=== PATIENT | male | born 1980 | race Hispanic/Latino ===

== ENCOUNTER 2018-04-20 06:05 | Emergency (ER) | payer SELFPAY ==
[2018-04-20 06:45] LABS: Absolute Lymphocytes (CBC) 1.6 K/uL (0.7-4.9); Absolute Monocytes 0.6 K/uL (0.1-1.3); Absolute Neutrophil 5.6 K/uL (1.8-8.0); Basophils % 0.8 % (0-1.3); Eosinophils % 2.9 % (0-4.4); Hematocrit 44.2 % (39.6-49.0); Lymphocytes % 19.5 % (15.3-44.8); MPV 8.3 fL (7.6-11.3); Monocytes % 7.5 % (3.3-12.3); RBC Red Blood Cell Count 4.93 M/uL (4.33-5.43)
[2018-04-20 07:01] LABS: BUN Blood Urea Nitrogen 13 mg/dL (7-18); Bicarbonate 27 mmol/L (21-32); Glucose Level 116 mg/dL (74-106); NT PRO-BNP 17 pg/mL (<125); Potassium 3.7 mmol/L (3.5-5.1); Sodium Level 142 mmol/L (136-145); Troponin (Emerg Dept Use Only) < 0.02 ng/mL (0.0-0.045)
[2018-04-20] MEDS ORDERED: MAGNE/ALUM HYDROXD 30 ML UCUP ONE (07:17)
[2018-04-20] MEDS ORDERED: LIDOCAINE VISCOUS 2% SOLN 15 ML UDC ONE (07:17)
--- NOTE | 2018-04-20 07:51 | EDPHYS ---
Physician Documentation [facility] Name: Jj Quintero Age: 37 yrs Sex: Male : 1980 Arrival Date: 04/20/2018 Time: 06:09 Bed 20 Private MD: ED Physician Cameron Reed HPI: 04/20 07:07 This 37 yrs old Male presents to ER via EMS with complaints of Shortness Of kb Breath. 07:07 The patient has shortness of breath with light activity, that occurred at work. Onset: kb The symptoms/episode began/occurred at 04:00, and improved. Duration: The symptoms are continuous. The patient's shortness of breath is aggravated by nothing, is alleviated by nothing. Associated signs and symptoms: The patient has no apparent associated signs or symptoms. Severity of symptoms: At their worst the symptoms were moderate in the emergency department the symptoms are unchanged. The patient has not experienced similar symptoms in the past. The patient has not recently seen a physician. Pt states his mouth and throat became really dry and felt "kind of numb" then he felt like he couldn't catch his breath. States it feels the same as when he has had GERD in the past. States he does not take medication normally for GERD. The last time he had these symptoms was 3-4 weeks ago after eating really spicy crawfish. He woke up at 0200 feeling like he couldn't breathe and like liquid was going up and down his throat. . Historical: - Allergies: 06:13 No Known Allergies; ed1 - Home Meds: 06:13 None [Active]; ed1 - PMHx: 06:13 Migraines; ed1 - PSHx: 06:13 Knee surgery; ed1 - Immunization history:: Adult Immunizations unknown. - Social history:: Smoking status: Patient uses tobacco products, reports quitting smoking 3 days ago. - Ebola Screening: : Patient negative for fever greater than or equal to 101.5 degrees Fahrenheit, and additional compatible Ebola Virus Disease symptoms Patient denies exposure to infectious person Patient denies travel to an Ebola-affected area in the 21 days before illness onset No symptoms or risks identified at this time. ROS: 07:07 Constitutional: Negative for fever, chills, and weight loss, Cardiovascular: Negative kb for chest pain, palpitations, and edema, Abdomen/GI: Negative for abdominal pain, nausea, vomiting, diarrhea, and constipation, Back: Negative for injury and pain, : Negative for injury, bleeding, discharge, and swelling, MS/Extremity: Negative for injury and deformity, Skin: Negative for injury, rash, and discoloration, Neuro: Negative for headache, weakness, numbness, tingling, and seizure. 07:07 Respiratory: Positive for shortness of breath, Negative for cough, dyspnea on exertion, hemoptysis, orthopnea, pleurisy, sputum production, wheezing. Exam: 07:07 Constitutional: This is a well developed, well nourished patient who is awake, alert, kb and in no acute distress. Head/Face: Normocephalic, atraumatic. Neck: Trachea midline, no thyromegaly or masses palpated, and no cervical lymphadenopathy. Supple, full range of motion without nuchal rigidity, or vertebral point tenderness. No Meningismus. Chest/axilla: Normal chest wall appearance and motion. Nontender with no deformity. No lesions are appreciated. Cardiovascular: Regular rate and rhythm with a normal S1 and S2. No gallops, murmurs, or rubs. Normal PMI, no JVD. No pulse deficits. Respiratory: Lungs have equal breath sounds bilaterally, clear to auscultation and percussion. No rales, rhonchi or wheezes noted. No increased work of breathing, no retractions or nasal flaring. Abdomen/GI: Soft, non-tender, with normal bowel sounds. No distension or tympany. No guarding or rebound. No evidence of tenderness throughout. Back: No spinal tenderness. No costovertebral tenderness. Full range of motion. Skin: Warm, dry with normal turgor. Normal color with no rashes, no lesions, and no evidence of cellulitis. MS/ Extremity: Pulses equal, no cyanosis. Neurovascular intact. Full, normal range of motion. Neuro: Awake and alert, GCS 15, oriented to person, place, time, and situation. Cranial nerves II-XII grossly intact. Motor strength 5/5 in all extremities. Sensory grossly intact. Cerebellar exam normal. Normal gait. Vital Signs: 06:13 BP 143 / 84; Pulse 112; Resp 18; Temp 98.2(O); Pulse Ox 97% on R/A; Weight 95.25 kg; ed1 Height 5 ft. 5 in. (165.10 cm); Pain 0/10; 07:34 BP 133 / 78; Pulse 95; Resp 16 S; Pulse Ox 98% on R/A; Pain 0/10; jl7 06:13 Body Mass Index 34.95 (95.25 kg, 165.10 cm) ed1 MDM: 06:09 Patient medically screened. kb 07:06 Data reviewed: vital signs, nurses notes. Data interpreted: Pulse oximetry: on room air kb is 97 %. Interpretation: normal. 07:49 Counseling: I had a detailed discussion with the patient and/or guardian regarding: the kb historical points, exam findings, and any diagnostic results supporting the discharge/admit diagnosis, lab results, radiology results, the need for outpatient follow up, a family practitioner, to return to the emergency department if symptoms worsen or persist or if there are any questions or concerns that arise at home. ED course: Pt feeling better after treatment. States he will start the GERD medication that his doctor has been wanting him to be on. 04/20 06:10 Order name: Basic Metabolic Panel kb 04/20 06:10 Order name: CBC with Diff; Complete Time: 06:56 kb 04/20 06:10 Order name: NT PRO-BNP kb 04/20 06:10 Order name: Troponin (emerg Dept Use Only); Complete Time: 07:02 kb 04/20 06:10 Order name: D-Dimer; Complete Time: 06:56 kb 04/20 06:10 Order name: Strep; Complete Time: 07:02 kb 04/20 06:10 Order name: XRAY Chest (1 view) kb 04/20 06:10 Order name: EKG; Complete Time: 06:11 kb 04/20 06:10 Order name: EKG - Nurse/Tech; Complete Time: 06:27 kb 04/20 06:10 Order name: Basic Metabolic Panel; Complete Time: 07:02 EDMS 04/20 06:11 Order name: NT PRO-BNP; Complete Time: 07:02 EDMS 04/20 07:00 Order name: Throat Culture EDMS 04/20 06:10 Order name: IV Saline Lock; Complete Time: 06:31 kb 04/20 06:10 Order name: Labs collected and sent; Complete Time: 06:31 kb 04/20 06:10 Order name: O2 Per Protocol; Complete Time: 06:31 kb 04/20 06:10 Order name: O2 Sat Monitoring; Complete Time: 06:31 kb Administered Medications: 07:08 Drug: GI Cocktail without - (Maalox Suspension 30 ml, Lidocaine Liquid 2 % 15 jl7 ml) Route: PO; 07:34 Follow up: Response: No adverse reaction [facility] 07:59 Drug: Pepcid 20 mg Route: IVP; Site: left antecubital; jl7 08:00 Follow up: Response: Medication administered at discharge. jl7 Disposition: 04/20/18 07:50 Discharged to Home. Impression: Gastro-esophageal reflux disease. - Condition is Stable. - Discharge Instructions: Gastroesophageal Reflux Disease, Adult. - Medication Reconciliation Form, Thank You Letter, Antibiotic Education, Prescription Opioid Use form. - Follow up: Emergency Department; When: As needed; Reason: Worsening of condition. Follow up: Private Physician; When: 2 - 3 days; Reason: Recheck today's complaints, Continuance of care, Re-evaluation by your physician. Addendum: 04/21/2018 11:13 Co-signature as Attending Physician, Cameron Reed MD I agree with the assessment and c finley plan of care. Signatures: Dispatcher [employer] EDMS Shiasta Toure, HIGH SCHOOL AGRICULTURE TEACHER-C HIGH SCHOOL AGRICULTURE TEACHER-Ckb Cameron Reed MD MD cha Riggs, Erika, RN RN ed1 Ijeoma Cassidy RN RN jl7 Corrections: (The following items were deleted from the chart) 04/20 08:01 07:50 04/20/2018 07:50 Discharged to Home. Impression: Gastro-esophageal reflux jl7 disease. Condition is Stable. Forms are Medication Reconciliation Form, Thank You Letter, Antibiotic Education, Prescription Opioid Use. Follow up: Emergency Department; When: As needed; Reason: Worsening of condition. Follow up: Private Physician; When: 2 - 3 days; Reason: Recheck today's complaints, Continuance of care, Re-evaluation by your physician. kb
--- NOTE | 2018-04-20 07:51 | ER ---
Nurse's Notes [facility] Name: Jj Quintero Age: 37 yrs Sex: Male : 1980 Arrival Date: 04/20/2018 Time: 06:09 Bed 20 Private MD: Diagnosis: Gastro-esophageal reflux disease Presentation: 04/20 06:10 Presenting complaint: EMS states: He reports shortness of breath and a feeling of ed1 something in his throat that moves up and down when he breathes. Transition of care: patient was not received from another setting of care. Onset of symptoms was April 20, 2018. Risk Assessment: Do you want to hurt yourself or someone else? Patient reports no desire to harm self or others. Initial Sepsis Screen: Does the patient meet any 2 criteria? No. Patient's initial sepsis screen is negative. Does the patient have a suspected source of infection? No. Patient's initial sepsis screen is negative. Care prior to arrival: IV initiated. 18 GA, in the left antecubital area, Glucose check: 144. 06:10 Method Of Arrival: EMS: [facility] ed1 06:10 Acuity: YAMILET 3 ed1 Triage Assessment: 06:13 General: Appears uncomfortable, Behavior is anxious. Pain: Denies pain. EENT: Throat is ed1 reddened. Neuro: Level of Consciousness is awake, alert, obeys commands, Oriented to person, place, time, situation, Denies weakness blurred vision dizziness, headache. Cardiovascular: Denies chest pain, Heart tones S1 S2 present. Respiratory: Reports shortness of breath at rest Airway is patent Respiratory effort is even, unlabored, Respiratory pattern is regular, symmetrical, Breath sounds are clear bilaterally. GI: Abdomen is non-distended, Bowel sounds present X 4 quads. Patient currently denies diarrhea, nausea, vomiting. : No signs and/or symptoms were reported regarding the genitourinary system. Derm: Skin is pink, warm \T\ dry. Musculoskeletal: Circulation, motion, and sensation intact. Historical: - Allergies: 06:13 No Known Allergies; ed1 - Home Meds: 06:13 None [Active]; ed1 - PMHx: 06:13 Migraines; ed1 - PSHx: 06:13 Knee surgery; ed1 - Immunization history:: Adult Immunizations unknown. - Social history:: Smoking status: Patient uses tobacco products, reports quitting smoking 3 days ago. - Ebola Screening: : Patient negative for fever greater than or equal to 101.5 degrees Fahrenheit, and additional compatible Ebola Virus Disease symptoms Patient denies exposure to infectious person Patient denies travel to an Ebola-affected area in the 21 days before illness onset No symptoms or risks identified at this time. Screenin:21 Abuse screen: Denies threats or abuse. Denies injuries from another. Nutritional ed1 screening: No deficits noted. Tuberculosis screening: No symptoms or risk factors identified. Fall Risk None identified. Assessment: 06:21 General: See triage assessment. ed1 07:00 Reassessment: Patient appears in no apparent distress at this time. Patient and/or jl7 family updated on plan of care and expected duration. Pain level reassessed. Patient is alert, oriented x 3, equal unlabored respirations, skin warm/dry/pink. Patient denies pain at this time. Vital Signs: 06:13 BP 143 / 84; Pulse 112; Resp 18; Temp 98.2(O); Pulse Ox 97% on R/A; Weight 95.25 kg; ed1 Height 5 ft. 5 in. (165.10 cm); Pain 0/10; 07:34 BP 133 / 78; Pulse 95; Resp 16 S; Pulse Ox 98% on R/A; Pain 0/10; jl7 06:13 Body Mass Index 34.95 (95.25 kg, 165.10 cm) ed1 ED Course: 06:09 Patient arrived in ED. kb 06:10 Amarilys Anaya, RICARDO is Primary Nurse. ed1 06:11 Shaista Toure FNP-C is PHCP. kb 06:11 Cameron Reed MD is Attending Physician. kb 06:12 Triage completed. ed1 06:13 Arm band placed on right wrist. ed1 06:21 Patient has correct armband on for positive identification. Bed in low position. Call ed1 light in reach. Side rails up X 1. 06:21 Maintain EMS IV. Dressing intact. Good blood return noted. Site clean \T\ dry. Gauge \T\ ed 1 site: 18g left a/c. 06:30 Initial lab(s) drawn, by me, sent to lab. EKG done, by ED staff, reviewed by Cameron childEboni Reed MD Strep swab sent to lab. 06:56 Primary Nurse role handed off by Amarilys Anaya, RN ed1 07:03 Ijeoma Cassidy, RN is Primary Nurse. jl7 07:09 X-ray completed. Portable x-ray completed in exam room. Patient tolerated procedure jb2 well. 07:11 XRAY Chest (1 view) In Process Unspecified. EDMS 08:00 No provider procedures requiring assistance completed. IV discontinued, intact, jl7 bleeding controlled, No redness/swelling at site. Pressure dressing applied. Administered Medications: 07:08 Drug: GI Cocktail without - (Maalox Suspension 30 ml, Lidocaine Liquid 2 % 15 jl7 ml) Route: PO; 07:34 Follow up: Response: No adverse reaction jl7 07:59 Drug: Pepcid 20 mg Route: IVP; Site: left antecubital; jl7 08:00 Follow up: Response: Medication administered at discharge. jl7 Outcome: 07:50 Discharge ordered by . kb 08:00 Discharged to home ambulatory. jl7 08:00 Condition: stable 08:00 Discharge instructions given to patient, Instructed on discharge instructions, follow up and referral plans. Demonstrated understanding of instructions. 08:01 Patient left the ED. jl7 Signatures: Dispatcher [employer] EDCT Shaista Toure, HARDENING MACHINE OPERATOR HELPERPatrickC HARDENING MACHINE OPERATOR HELPER-[place]opez Driscoll jb2 Amarilys Anaya, RN RN ed1 Ijeoma Cassidy, RICARDO RN jl7
[2018-04-20] MEDS ORDERED: FAMOTIDINE 20 MG/2 ML VIAL IV ONE (08:04)
--- NOTE | 2018-04-20 08:45 | RAD REPORT ---
EXAM DESCRIPTION: Pete Single View04/20/2018 7:12 am CLINICAL HISTORY: Shortness of breath COMPARISON: none FINDINGS: The lungs appear clear of acute infiltrate. The heart is normal size IMPRESSION: No acute abnormalities displayed
--- NOTE | 2018-04-20 10:30 | EKG ---
Test Date: 2018-04-20 Test Time: 06:16:55 Entry Level Account Executive: ZURDO MEASUREMENT RESULTS: Intervals: Rate: 105 MT: 166 QRSD: 98 QT: 340 QTc: 449 [place]: P: 63 MT: 166 QRS: -11 T: 54 INTERPRETIVE STATEMENTS: Sinus tachycardia Otherwise normal ECG No previous ECG available for comparison Electronically Signed On 04-20-18 10:29:12 DIRECTOR OF CATH LAB by Usman Thomson
--- NOTE | 2018-04-21 06:07 | EKG ---
Test Date: 2018-04-20 Test Time: 06:18:33 Husker Operator: ZURDO MEASUREMENT RESULTS: Intervals: Rate: 99 CT: 168 QRSD: 96 QT: 340 QTc: 436 [place]: P: 60 CT: 168 QRS: -9 T: 50 INTERPRETIVE STATEMENTS: Normal sinus rhythm Normal ECG Compared to ECG 04/20/2018 06:16:55 Sinus tachycardia no longer present Electronically Signed On 04-21-18 06:04:41 APPRAISER PERSONAL PROPERTY by Usman Thomson
== END 2018-04-20 08:01 | disposition home or self-care (01) ==
LOC: ER 06:05
DX: K21.9 Gastro-esophageal reflux disease without esophagitis (principal); F17.200 Nicotine dependence, unspecified, uncomplicated
CPT/HCPCS: 36415; 71045; 80048; 83880; 84484; 85025; 85379; 87070; 87081; 93005; 96374; 99284